=== PATIENT | female | born 1995 | race Caucasian/White ===

== ENCOUNTER 2021-08-17 16:32 | Emergency (ER) | payer SELFPAY ==
[2021-08-17] MEDS ORDERED: AMOX TR-K CLV1 EAC4 PO (17:09)
== END 2021-08-17 17:27 | disposition home or self-care (01) ==
LOC: FER 16:32
DX: K02.9 Dental caries, unspecified (principal); E11.9 Type 2 diabetes mellitus without complications; F17.210 Nicotine dependence, cigarettes, uncomplicated; Z79.84 Long term (current) use of oral hypoglycemic drugs; Z28.310 Unvaccinated for COVID-19
CPT/HCPCS: 99282; Q0163